=== PATIENT | female | born 1995 ===

== ENCOUNTER 2022-05-14 22:48 | Inpatient (IN) | payer OTHER ==
[2022-05-14] MEDS ORDERED: OXYTOCIN/LR 20 UNIT/1,000 ML BAG IV SCH (23:45)
[2022-05-14] MEDS ORDERED: Ringers Lactate 1,000 ML IV SCH (23:45)
[2022-05-14] MEDS ORDERED: Ringers Lactate 1,000 ML IV PRN (23:57)
[2022-05-14] MEDS ORDERED: CARBOPROST TROME 250 MCG/ML IM PRN (23:57)
[2022-05-14] MEDS ORDERED: PROMETHAZINE INJ 25 MG/ML AMP IM PRN (23:57)
[2022-05-14] MEDS ORDERED: METHYLERGONOVINE 0.2MG/ML AMP IM PRN (23:57)
[2022-05-14] MEDS ORDERED: BUTORPHANOL 1 MG/ML INJ IV PRN (23:57)
[2022-05-14] MEDS ORDERED: MEPERIDINE HCL 25 MG/ML SYR IV PRN (23:57)
[2022-05-14] MEDS ORDERED: PENICILLIN 5 MU in NA CHLORIDE 0.9% 100 ML IV ONE (23:57)
[2022-05-15] MEDS ORDERED: LIDOCAINE 1% MPF 30 ML VIAL SQ ONE (00:48)
[2022-05-15 01:04] LABS: Hematocrit 33.3 % (36.0-45.0); Lymphocytes % 20.3 % (15.3-44.8); MCV 88.6 fL (80-100); RBC Red Blood Cell Count 3.76 M/uL (3.86-4.86)
[2022-05-15 01:38] LABS: Barbiturates NEGATIVE (NEGATIVE); Benzodiazepines NEGATIVE (NEGATIVE); Cocaine NEGATIVE (NEGATIVE); Methadone NEGATIVE (NEGATIVE); Opiates POSITIVE (NEGATIVE); Phencyclidine NEGATIVE (NEGATIVE); THC Cannibis NEGATIVE (NEGATIVE)
[2022-05-15 01:50] LABS: METHAMPHETAM POSITIVE (NEGATIVE)
[2022-05-15] MEDS ORDERED: LIDOCAINE 1% 20 ML MDV ONE (01:50)
[2022-05-15] MEDS: OXYTOCIN/LR 20 UNIT/1,000 ML BAG IV SCH ×2 (04:05→13:00)
[2022-05-15] MEDS ORDERED: BISACODYL 10 MG RECTAL SUPP PR PRN (04:46)
[2022-05-15] MEDS ORDERED: Oxycodone HCl/Acetaminophen 1 TAB TAB PO PRN ×2 (04:46)
[2022-05-15] MEDS ORDERED: IBUPROFEN 200 MG TAB PO PRN (04:46)
[2022-05-15] MEDS ORDERED: DOCUSATE NA/SENNA CONC 1 TAB PO PRN (04:46)
[2022-05-15] MEDS ORDERED: ACETAMINOPHEN 500 MG TAB PO PRN (04:46)
[2022-05-15] MEDS ORDERED: DIPHENHYDRAMINE 25 MG TAB/CAP PO PRN (04:46)
[2022-05-15] MEDS ORDERED: PENICILLIN 2.5 MU in NA CHLORIDE 0.9% 100 ML IV SCH (05:00)
--- NOTE | 2022-05-15 05:22 | PREOPHP ---
Date of Admission: 05/14/2022 History Of Present Illness: A 26-year-old primigravida at 35 weeks and 4 days on admission, was admi tted in active labor, noted to be 3-4 cm with rupture of membranes, clear fluid. FHTs normal and myra ctive. The patient gives a history of being [facility] in a [facility] in [place] at 20 weeks. Otherwise, no care. Drug screen showed positive for amphetamines and opioids . creative services intern will be notified. During her labor, she was given penicillin 5 million units as h er beta strep status was unknown, she is Rh positive, COVID was negative. Other labs pending at this point. Family History: Noncontributory. Past Medical History: Gives history of allergy to codeine. Past Surgical History: No previous surgeries. Supposedly this is the first . Physical Examination: HEENT: Clear. Pupils equal, round, and reactive to light and accommodation. Conjunctivae well perf used. No oral, lingual, or buccal lesions. Chest and Lungs: Clear. Breasts: Not examined. Abdomen: Appropriate for size. Extremities: Clear without edema, cyanosis, or clubbing. Pelvic: As stated 3-4 cm with rupture of membranes. Vertex presenting. Numerous tattoos. Assessment And Plan: Admitted for stabilization and delivery. [facility] Voice ID: [id number]
--- NOTE | 2022-05-15 05:27 | DN ---
Surgeon: Andres Finch MD History: A 26-year-old primigravida at 34 weeks and 4 days on admission. The patient was given at h er request Stadol 1 mg IV, Phenergan 25 mg IM at 5 cm dilation. Thereafter, patient went rapidly to c omplete, delivered precipitously of a 5 pounds 6-ounce female, Apgars 9 and 9. Midline laceration si mulating episiotomy was repaired with 2-0 chromic under local infiltration. There was a single lacer ation on the left side of the introitus, which required a single [id number] stitch with 2-0 search strategist gila. Schultze delivery of the placenta was inspected and noted to be intact and normal. Estimated b lood loss 350 cc to this point. Final Diagnoses: Intrauterine gestation 34 weeks 5 days at delivery. Minimal or no care. Positive drug screen on admission for amphetamines and opioids. Penicillin prophylaxis. Precipitous vaginal delivery. [facility] Voice ID: [id number] Report ID: [id number]
[2022-05-15 06:11] VITALS: BMI 26.2
--- NOTE | 2022-05-15 07:45 | DS ---
Hospital Course: Delivered at approximately 35 weeks and 5 days of a 5-pound 6-ounce female, Apgars 9 and 9. Local infiltration for repair of second-degree laceration, which was sustained spontaneousl y at the time of her precipitous delivery, local infiltration. Schultze delivery of the placenta was inspected and noted to be intact and normal with estimated 350 cc blood loss. Penicillin prophylaxi s 5 million units given 1 time secondary to unknown strep status. The patient is Rh positive. COVID is negative. Rubella status is still pending. We will offer her rubella immunization and Tdap immu nization. The patient was tested positive for amphetamines and opioids. I think she is sneaking her self drugs in the hospital as she did not open her eyes this morning, did not respond to any question s or statements. Her mother is in the room quite alert. Newspaper Journalist has been contacted. I do n ot think it would be okeefe to send the baby home with this patient, but that is to be determined by [facility]. She will be dismissed probably later today or tomorrow morning if she chooses to stay . I doubt she will follow up, but she knows she can call my office for followup if she wishes. I wing ve told her she probably should think about control. I doubt she will do that. Final Diagnoses: Intrauterine gestation delivery precipitously at 35 weeks 5 days. Positive drug sc reen for amphetamines and opioids. Uncooperative patient. Penicillin prophylaxis given. Tdap and r ubella immunizations offered. [facility] Voice ID: [id number] Report ID: [id number]
[2022-05-15] MEDS ORDERED: IBUPROFEN 600 MG TAB PO PRN (16:00)
[2022-05-15 23:14] LABS: RPR (Rapid Plasma Reagin) NON-REACT (NON-REACT)
[2022-05-16 07:36] VITALS: BP 136/84; TEMP 98.4
[2022-05-19 10:05] LABS: HIV AG/AB 4TH GEN Non-reactive (Non-reactive)
[2022-05-20 00:59] LABS: HBsAG Nonreactive (Nonreactive)
== END 2022-05-16 07:45 | disposition home or self-care (01) | DRG 805 ==
LOC: L&D 22:48 → 2ND-WC 23:31
PROVIDERS: ADMIT Specialist; ATTEND Specialist
PROC: 10E0XZZ Delivery of Products of Conception, External Approach (ICD-10-PCS; principal; 2022-05-15)
PROC: 0KQM0ZZ Repair Perineum Muscle, Open Approach (ICD-10-PCS; 2022-05-15)
DX: O70.1 Second degree perineal laceration during delivery (principal); O60.14X0 Preterm labor third trimester with preterm delivery third trimester, not applicable or unspecified; Z37.0 Single live birth; O99.324 Drug use complicating childbirth; Z3A.34 34 weeks gestation of pregnancy; O99.824 Streptococcus B carrier state complicating childbirth; F15.90 Other stimulant use, unspecified, uncomplicated; F11.90 Opioid use, unspecified, uncomplicated; Z20.822 Contact with and (suspected) exposure to COVID-19
CPT/HCPCS: 36415; 80307; 82947; 85025; 86592; 86762; 86850; 86900; 86901; 87340; 87389; J0595; J2210; J2540; J2550; J2590; J7120; U0003